=== PATIENT | male | born 2000 | race Hispanic/Latino ===

== ENCOUNTER 2019-10-29 10:36 | Observation (INO) | payer BC ==
[~2019-10-29 10:36] MED LIST: Iopamidol 370 76% 50 ML VIAL FS ONE; Iopamidol-370 76% 500 ML 1 ML ONE
[2019-10-29 11:16] LABS: #Lymphocytes 2.2 thou/uL (1.20-3.40); #Monocytes 1.6 thou/uL (0.11-0.59); #Neutrophils 14.3 thou/uL (1.40-6.50); %Basophils 0.3 % (0.0-1.0); %Lymphocytes 12.2 % (21.0-51.0); %Monocytes 8.9 % (0.0-10.0); %Neutrophils 78.6 % (42.0-75.0); Hemoglobin 16.5 g/dL (14.0-18.0); Mean Corpuscular HGB CONC 32.9 g/dL (32.0-36.0); Mean Corpuscular Hemoglobin 28.6 pg (27.0-31.0); Mean Corpuscular Volume 87.1 fL (78.0-98.0); Mean Platelet Volume 7.9 fL (7.4-10.4); Platelet Count 275 thou/uL (130-400); RBC Distribution Width 11.8 % (11.5-14.5); Red Blood Cell (RBC) Count 5.78 mill/uL (4.70-6.10); White Blood Cell (WBC) Count 18.2 thou/uL (4.8-10.8)
[2019-10-29] MEDS ORDERED: Morphine 4 MG/ML VIAL ONE (11:24)
[2019-10-29] MEDS ORDERED: Ondansetron PF 4 MG/2 ML Vial ONE ×2 (11:24→14:33)
[2019-10-29 11:36] LABS: ALT (SGPT) 12 U/L (8-55); AST (SGOT) 14 U/L (5-34); Albumin 4.9 g/dL (3.5-5.0); Alkaline Phosphatase 73 U/L (40-110); Anion Gap 15 mmol/L (10-20); BUN (Urea Nitrogen) 10 mg/dL (8.9-20.6); Bilirubin, Total 1.1 mg/dL (0.2-1.2); Calc. Creatinine Clearance 0 mL/min (70-130); Calcium 9.7 mg/dL (7.8-10.44); Carbon Dioxide 26 mmol/L (22-29); Chloride 101 mmol/L (98-107); Estimated GFR-MDRD 84; Globulin 2.9 g/dL (2.4-3.5); Glucose 103 mg/dL (70-105); Lipase 28 U/L (8-78); Potassium 3.8 mmol/L (3.5-5.1); Protein, Total 7.8 g/dL (6.0-8.3); Sodium 138 mmol/L (136-145)
[2019-10-29 11:48] LABS: Bilirubin Negative (Negative); Blood, Urine Negative (Negative); Clarity Turbid (Clear); Glucose, Urine (Dipstick) 50 mg/dL (Negative); Leukocyte Negative Leu/uL (Negative); Nitrite Negative (Negative); Protein, Urine (Dipstick) 50 mg/dL (Neg-Trace); RBC/HPF 0-3 HPF (0-3); Squamous Epithelial 0-3 HPF (0-3); Urobilinogen Normal mg/dL (Less than 2)
[2019-10-29 11:49] LABS: Bacteria/HPF 1+ HPF (None Seen)
[2019-10-29] MEDS ORDERED: Piperacillin/Tazobactam 3.375 GM VIAL ONE (13:38)
--- NOTE | 2019-10-29 13:48 | CT ---
ABDOMEN AND PELVIC CT SCAN WITH IV CONTRAST: 10/29/19 HISTORY: Abdominal pain. Concern for appendicitis. FINDINGS: The lung bases are clear. The visualized liver, gallbladder, pancreas, spleen, adrenal glands are un remarkable. No renal calculi or acute obstruction. There is evidence for acute retrocecal appendicitis with an abnormal thickened appendix and fluid in the appendix as well as marked amount of periappendiceal fluid and edema as well as some minimal flui d in the right colonic gutter and fluid in the pelvis. No evidence for large or small bowel obstructi on. Sigmoid colon diverticulosis without acute diverticulitis. IMPRESSION: Evidence for acute retrocecal appendicitis with considerable periappendiceal edema and fat stranding as well as some fluid in the right colonic gutter and extending in the pelvis. No evidence for confined drainage abscess or evidence for extraluminal gas. Findings were discussed with Dr. Lloyd in the Emergency Room at 1:30 p.m. Code AMELIA POS: STACEYE
[2019-10-29] MEDS ORDERED: Ketorolac Tromethamine 30 MG/ML VIAL ONE (14:33)
[2019-10-29] MEDS ORDERED: Lidocaine 1% PF 5 ML VIAL ONE (14:33)
[2019-10-29] MEDS ORDERED: PROPOFOL 200 MG/20 ML VIAL ONE (14:33)
[2019-10-29] MEDS ORDERED: Succinylcholine Chloride 20 MG/ML 10 ml SYRINGE FS ONE (14:33)
[2019-10-29] MEDS ORDERED: Esmolol 100 MG/10 ML VIAL ONE (14:33)
[2019-10-29] MEDS ORDERED: Rocuronium Bromide 10 MG/ML (10ML VIAL) ONE (14:33)
[2019-10-29] MEDS ORDERED: cefOXitin Sodium/Dextrose,Iso 2 GM in Premix Bag 1 BAG IVPB SCH (15:00)
--- NOTE | 2019-10-29 15:05 | HP ---
HISTORY OF PRESENT ILLNESS: Mr. Edwards is a 19-year-old young man who presented to the emergency department today. The patient reported insidious onset periumbilical abdominal pain, which started yesterday morning. Maximum intensity pain was rated at 6/10 to 7/10 and associated with multiple episodes of nausea, but no emesis. He recorded 1 bout of diarrhea yesterday morning. He denies any fevers or chills. Pain has since settled in the right lower quadrant before it persisted. The [facility] Following the evaluation, he was referred to the emergency department. At the time of my evaluation, he is awake and alert. His pain is better controlled with intravenous analgesics. PAST MEDICAL HISTORY: He denies any previous medical problems. PAST SURGICAL HISTORY: The patient denies any previous surgeries. SOCIAL HISTORY: He is single, lives independently in a school dorm. He is a [employer], majoring in marketing at the [employer]. He denies any cigarette smoking, ethanol, or illicit drug abuse. FAMILY HISTORY: Notable for various members of his extended family from his father's side with hypertension, diabetes mellitus, heart disease, but no cancer. CURRENT MEDICATIONS: None. ALLERGIES: THE PATIENT DENIES ANY KNOWN DRUG ALLERGIES. REVIEW OF SYSTEMS: Ten-point review of systems is essentially unremarkable except as stated in past medical history and chief complaint. PHYSICAL EXAMINATION: GENERAL: This reveals a 19-year-old normally developed man who is otherwise coherent and interactive and appears stated age. The patient is alert and oriented x3, appears to be in no acute distress at the time of my evaluation. HEART: Reveals regular rate and rhythm. No murmurs or gallops auscultated. LUNGS: Clear to auscultation bilaterally. Breathing, regular and nonlabored. ABDOMEN: Soft with right lower quadrant tenderness to palpation. He has a positive Rovsing sign. Liver and spleen otherwise nonpalpable below costal margins. NEUROLOGIC: Reveals no focal deficits present. LABORATORY FINDINGS: Today include a CBC with 18,200 white blood cells, hemoglobin and hematocrit 16.5 and 50.3 respectively, and platelet count is 275,000. Metabolic profile: Sodium 138, potassium 3.8, chloride is 101, bicarb is 26, BUN is 10, creatinine is 1.11, and glucose 103. Total bilirubin 1.1, AST and ALT normal at 14 and 12 respectively, and serum lipase also normal at 28. I have personally reviewed the CT scan of the abdomen and pelvis, which is remarkable for dilated retrocecal appendix with periappendiceal fat stranding. There is associated small free fluid present. No pneumatosis intestinalis present. IMPRESSION: Acute appendicitis. PLAN: Laparoscopic appendectomy. Above findings and plan has been discussed with the patient. I have advised the patient of the risks and benefits of the proposed surgery to include, but not limited to bleeding, infection, injury to bowel or surrounding structures. The patient indicates understanding the information given. I have answered his questions. The patient is going to consent for this surgical intervention. Job ID: [id number]
[2019-10-29] MEDS ORDERED: Bupivacaine 0.25% HCL 30 ML VIAL ONE (15:20)
[2019-10-29] MEDS ORDERED: Lidocaine 1% w/Epinephrine 1:100K 20 ML VIAL ONE (15:20)
[2019-10-29] MEDS ORDERED: Famotidine/PF 20 mg/2ml Vial ONE (15:30)
[2019-10-29] MEDS ORDERED: Midazolam HCl 2 mg/2 ml Vial ONE (15:30)
[2019-10-29] MEDS ORDERED: Fentanyl 100 MCG/2 ML VIAL ONE (15:30)
[2019-10-29] MEDS ORDERED: Scopolamine 1.5 mg/72 hour Patch ONE (15:30)
[2019-10-29] MEDS ORDERED: Promethazine HCl 25 MG/ML VIAL IM PRN ×2 (17:56→17:57)
[2019-10-29] MEDS ORDERED: hydrALAZINE 20 MG/ML VIAL SLOW IVP PRN (17:56)
[2019-10-29] MEDS ORDERED: Dextrose 5% in Water 1,000 ML IV PRN (17:56)
[2019-10-29] MEDS ORDERED: Ondansetron PF 4 MG/2 ML Vial IVP PRN (17:56)
[2019-10-29] MEDS ORDERED: Dextrose 50% Abboject 50 ML SYRINGE SLOW IVP PRN (17:56)
[2019-10-29] MEDS ORDERED: Promethazine HCl 25 MG/ML VIAL SLOW IVP PRN (17:57)
[2019-10-29] MEDS ORDERED: Ondansetron HCl/PF 4 MG/2 ML Vial IVP PRN (17:57)
[2019-10-29] MEDS ORDERED: traMADol HCl 50 MG TAB PO PRN ×2 (17:59)
[2019-10-29] MEDS: Lactated Ringer's 1,000 ML IV SCH (19:00)
[2019-10-29] MEDS: Acetaminophen 500 MG TAB PO SCH (19:42)
[2019-10-29] MEDS: Famotidine 20 MG TAB PO SCH (19:42)
[2019-10-29] MEDS: Amoxicillin/Potassium Clav 875 MG TAB PO SCH (19:42)
[2019-10-29] MEDS: Famotidine/PF 20 mg/2ml Vial SLOW IVP SCH (19:43)
[2019-10-29 19:44] VITALS: BMI 26.4
[2019-10-29] MEDS ORDERED: Enoxaparin Sodium 40 MG/0.4 ML SYRINGE SC SCH (21:00)
[2019-10-30] MEDS: Acetaminophen 500 MG TAB PO SCH ×3 (01:00→12:47)
--- NOTE | 2019-10-30 01:20 | PRG ---
DATE OF SERVICE: 10/30/2019 SUBJECTIVE: The patient was seen this evening during rounds. He was sitting up in bed, awake and alert with no signs of acute distress. He reported pain is well controlled. Has not voided since surgery, but reports he does not need to void. Tolerating a regular diet and liquids. OBJECTIVE: VITAL SIGNS: Temperature 98.4, pulse 84, respirations 16, oxygen saturation 96% on 3.5 L nasal cannula, and blood pressure 108/71. GENERAL: Well-appearing young male, sitting up in bed with no signs of acute distress. PULMONARY: Equal chest rise and fall. No signs of acute respiratory distress. ASSESSMENT: Status post laparoscopic appendectomy due to acute appendicitis. PLAN: Continue regular diet. Continue IV antibiotics. Continue IV fluids. Encourage ambulating. Continue to monitor for void. The patient will likely be discharged in the morning. Job ID: [id number]
--- NOTE | 2019-10-30 01:23 | OP ---
DATE OF PROCEDURE: 10/29/2019 PREOPERATIVE DIAGNOSIS: Acute appendicitis. POSTOPERATIVE DIAGNOSIS: Acute suppurative retrocecal appendix. OPERATION PERFORMED: Laparoscopic appendectomy. ANESTHESIA: General endotracheal. ESTIMATED BLOOD LOSS: 10 mL. FLUIDS GIVEN: 900 mL crystalloids. COUNTS: Sponge and instrument counts were verified as correct x2. COMPLICATIONS: None apparent at the time of operation. INDICATIONS FOR OPERATION: A 19-year-old man presented with insidious onset periumbilical abdominal pain, which started yesterday morning. Clinical and radiographic examination were consistent with acute appendicitis, for which the patient was brought to the operating room for appendectomy. Findings are consistent with suppurative retrocecal appendix with extensive amount of fibrosis. There is minimum periappendiceal purulence. DESCRIPTION OF PROCEDURE: Informed consent was obtained from the patient, who was brought to the operating room and placed in supine position. Following general anesthesia, the abdomen was sterilely prepped and draped in usual fashion. The skin below the umbilicus was infiltrated with 0.25% Marcaine with epinephrine. A small curvilinear infraumbilical incision was made using 11 scalpel. Umbilical stalk was grasped with Calixto and elevated. A Veress needle was inserted through the incision and placed in the peritoneal cavity through which the abdomen was insufflated with 3 L of CO2 gas. Intraabdominal pressure noted at 3 mmHg. Following abdominal insufflation, Veress needle was removed. A 5 mm trocar was introduced using a Visiport under laparoscopy. Laparoscopy confirmed proper placement of the port. No injuries to underlying structures. Additional laparoscopy revealed right lower quadrant completely encased by omental adhesions. Under direct laparoscopy, two 5 mm suprapubic and left lower quadrant ports were placed after the overlying skin was infiltrated with 0.25% Marcaine with epinephrine and appropriate incision was made. The patient was placed in a Trendelenburg position, rotated to his left. I introduced Prestige grasper through the left lower quadrant port using this to bluntly take down omental adhesions. The distal ileum was completely welded to the right lateral gutter. This was bluntly dissected off and traced down to the ileocecal junction. The ileocecal fat pad was readily identified. It was obvious that the appendix was retrocecal. The cecum completely welded to the right lateral gutter was bluntly dissected to reflex the cecum medially exposing a dilated suppurative appendix, which completely adhered to the right lateral gutter with the tip abutting the inferior edge of the liver. This was bluntly dissected off and then grasped with Endo Lizeth forceps. The appendix was then elevated. The mesoappendix was sterilely divided down to the base using the LigaSure with good hemostasis. Appendix itself was divided at the appendicocecal junction between Endoloop. The appendix was delivered of the abdominal cavity using an EndoCatch. Operative site was irrigated and inspected for good hemostasis. A small amount of purulent pus just into the appendix was evacuated using suction. Once the operative site was irrigated and noted with good hemostasis, the distal ileum was then ran to proximal 2 feet, finding no Meckel diverticulum. The left lower quadrant port through which the appendix was delivered of the abdominal cavity. The fascia was closed here using 0 Vicryl suture and Endo Close device on the laparoscopy. The abdomen was desufflated. All ports and instruments were removed and accounted for. Skin incision was closed using 4-0 Monocryl suture in subcuticular fashion. Dermabond was applied over incisional closure. The patient tolerated the operation without any apparent complication and was returned to recovery room in satisfactory condition. Job ID: [id number]
[2019-10-30] MEDS: Lactated Ringer's 1,000 ML IV SCH (03:51)
[2019-10-30 05:46] LABS: #Lymphocytes 1.2 thou/uL (1.20-3.40); #Monocytes 0.8 thou/uL (0.11-0.59); #Neutrophils 13.3 thou/uL (1.40-6.50); %Basophils 0.1 % (0.0-1.0); %Lymphocytes 7.8 % (21.0-51.0); %Monocytes 5.3 % (0.0-10.0); %Neutrophils 86.9 % (42.0-75.0); Hemoglobin 14.1 g/dL (14.0-18.0); Mean Corpuscular HGB CONC 32.8 g/dL (32.0-36.0); Mean Corpuscular Hemoglobin 29.1 pg (27.0-31.0); Mean Corpuscular Volume 88.6 fL (78.0-98.0); Mean Platelet Volume 8.2 fL (7.4-10.4); Platelet Count 219 thou/uL (130-400); RBC Distribution Width 11.8 % (11.5-14.5); Red Blood Cell (RBC) Count 4.85 mill/uL (4.70-6.10); White Blood Cell (WBC) Count 15.3 thou/uL (4.8-10.8)
[2019-10-30 05:56] LABS: Phosphorus 3.7 mg/dL (2.3-4.7)
[2019-10-30 05:58] LABS: Anion Gap 13 mmol/L (10-20); BUN (Urea Nitrogen) 12 mg/dL (8.9-20.6); Calc. Creatinine Clearance 133 mL/min (70-130); Calcium 8.9 mg/dL (7.8-10.44); Carbon Dioxide 26 mmol/L (22-29); Chloride 103 mmol/L (98-107); Estimated GFR-MDRD Greater than 90; Glucose 120 mg/dL (70-105); Potassium 4.1 mmol/L (3.5-5.1); Sodium 138 mmol/L (136-145)
[2019-10-30] MEDS: Famotidine 20 MG TAB PO SCH (08:22)
[2019-10-30] MEDS: Amoxicillin/Potassium Clav 875 MG TAB PO SCH (08:23)
[2019-10-30 11:52] VITALS: BP 105/67; TEMP 98.2
[2019-10-30] MEDS: Famotidine/PF 20 mg/2ml Vial SLOW IVP SCH (12:49)
--- NOTE | 2019-10-30 15:09 | DIS ---
DATE OF ADMISSION: 10/29/2019 DATE OF DISCHARGE: 10/30/2019 ADMITTING AND DISCHARGE PHYSICIAN: Kwabena Li DO ADMITTING DIAGNOSIS: Acute appendicitis. DISCHARGE DIAGNOSES: Acute suppurative retrocecal appendix with periappendiceal abscess. OPERATIONS PERFORMED: Laparoscopic appendectomy and drainage of periappendiceal abscess on 10/29/2019. Please see a separate dictation for a report. HISTORY/HOSPITAL COURSE: A 19-year-old man, presented with periumbilical abdominal pain, which soon settled in the right lower quadrant. Clinical radiographic examination was consistent with acute retrocecal appendicitis, for which the patient was brought to the operating room for appendectomy. Findings are consistent with acute suppurative retrocecal appendix with periappendiceal abscess. Due to extensive dissection, the patient was placed on observation postoperatively. He has done well. This morning, he is ambulating with minimum difficulty. He is tolerating diet, having normal bowel and urinary function. He has been hemodynamically stable and afebrile through this hospitalization. Abdominal examination reveals intact incisions, which are clean and dry. He has clearly has no peritoneal signs on examination. this morning includes a CBC with 15,300 white blood cells, down from 18,200 yesterday. Hemoglobin and hematocrit stable at 14.1 and 43.0 respectively. Platelet count 219,000. Metabolic profile; sodium 138, potassium 4.1, chloride is 103, bicarb is 26, BUN 12, creatinine 0.98, glucose 120, magnesium 2.0, and phosphorus 3.7. IMPRESSION: Postop day #1, status post laparoscopic appendectomy and drainage of periappendiceal abscess. PLAN: The patient has been discharged home today with the following instructions; 1. The patient is to see me in the surgery clinic in 2 weeks with a repeat CBC. 2. He may take Tylenol 1000 mg p.o. q.6 hours alternating this with ibuprofen 600 mg p.o. q.8 hours p.r.n. pain. 3. Additionally, he is given a prescription for tramadol 50 mg #30 to be taken 1 to 2 p.o. q.6 hours p.r.n. pain. 4. He is also given a prescription for Augmentin 875 mg to be taken one p.o. b.i.d. for five days. 5. The patient may shower effective tomorrow. 6. He is to avoid weight lifting in excess of 20 pounds until he has been released by me. He may not swim or soak himself in a bathtub until he has been released by me. 7. The patient is to call me with any questions or problems including exacerbation of abdominal pain, fever in excess of 101 degrees Fahrenheit, or intolerance to oral intake. 8. The patient indicates understanding of information provided to him today in the presence of his nurse. 9. He has expressed gratitude for the care rendered to him during this hospitalization and surgery. Job ID: [id number]
== END 2019-10-30 14:18 | disposition home or self-care (01) ==
LOC: ERS 10:36 → SDC 16:00 → SURG A 18:01
PROVIDERS: ADMIT Surgery; ATTEND Surgery
PROC: 0DTJ4ZZ Resection of Appendix, Percutaneous Endoscopic Approach (ICD-10-PCS; principal; 2019-10-30)
DX: K35.33 Acute appendicitis with perforation, localized peritonitis, and gangrene, with abscess (principal)
CPT/HCPCS: 36415; 74177; 80048; 80053; 81003; 81015; 83690; 83735; 84100; 85025; 88304; 96361; 96365; 96372; 96375; G0378; J1650; J1885; J2001; J2250; J2270; J2405; J2543; J2704; J3010; Q9967; S0020; S0028